=== PATIENT | female | born 1980 | race Caucasian/White ===

== ENCOUNTER 2018-05-04 07:39 | Emergency (ER) | payer BC ==
[~2018-05-04] VITALS: Ht 137.2 cm; Wt 40.9 kg
[~2018-05-04 07:39] MED LIST: ATARAX50 MG PO; ATIVAN 0.50.5 MG/TAB PO; LORTAB 5/500 501 TAB PO; NAPROSYN500 MG PO; OXYCONTIN15 MG; SPRINTEC 35 MCG1 TAB PO; ULTRAM 50MG TAB50 MG
[2018-05-04 07:48] VITALS: TEMP 98.5
[2018-05-04 08:52] LABS: BASO # 0.1 (0.0-0.2); BASO % 0.8 % (0.0-2.0); EOS # 0.5 (0.0-0.7); GRAN # 8.2 (1.4-6.5); GRAN % 66.3 % (42.2-75.2); HEMATOCRIT 39.7 % (37.0-47.0); HEMOGLOBIN 13.8 g/dl (12.5-16.0); LYMPH # 2.4 (1.2-3.4); LYMPH % 19.7 % (20.0-51.0); MEAN CELL VOLUME 89 fl (80.0-100.0); MEAN CORPUSCULAR HEMOGLOBIN 31 pg (27.0-31.0); MEAN CORPUSCULAR HGB CONC 35 g/dl (33.0-37.0); MEAN PLATELET VOLUME 8.9 fl (7.4-10.4); MONO # 1.1 (0.1-0.6); MONO % 8.8 % (1.7-9.3); PLATELET COUNT 358 K/mm3 (130-400); RED BLOOD COUNT 4.47 M/mm3 (4.10-5.30); REDCELL DISTRIBUTION WIDTH-CV 12.2 % (11.5-14.5)
[2018-05-04 08:58] LABS: COLLECTION METHOD CLEAN CATCH
[2018-05-04 09:06] LABS: ALANINE AMINOTRANSFERASE 19 U/L (9-52); ALBUMIN 4.8 gm/dL (3.5-5.0); ALKALINE PHOSPHATASE 68 U/L (50-136); ANION GAP 16 mmol/L (7-16); AST,SGOT 22 U/L (15-37); BILIRUBIN,TOTAL 0.8 mg/dL (0.0-1.0); BLOOD UREA NITROGEN 17 mg/dL (7-17); CALCIUM 9.6 mg/dL (8.4-10.2); CARBON DIOXIDE 18 mmol/L (22-30); CHLORIDE 107 mmol/L (98-107); GLUCOSE 81 mg/dL (74-106); POTASSIUM 3.6 mmol/L (3.4-5.0); SODIUM 142 mmol/L (137-145); TOTAL PROTEIN 8.2 gm/dL (6.4-8.2)
[2018-05-04 09:09] LABS: C-REACTIVE PROTEIN < 0.5 mg/dL (0.0-0.9)
[2018-05-04 09:29] LABS: MUCOUS Present /lpf; PH 5 (5-8); URINE APPEARANCE Cloudy; URINE BACTERIA Rare /hpf; URINE BILIRUBIN Negative (NEGATIVE); URINE BLOOD 1+ (NEGATIVE); URINE COLOR Yellow; URINE GLUCOSE Negative (NEGATIVE); URINE KETONE 1+ (NEGATIVE); URINE LEUKOCYTE ESTERASE Negative (NEGATIVE); URINE NITRATE Negative (NEGATIVE); URINE PROTEIN(semi-quant) 2+ (NEGATIVE)
[2018-05-04] MEDS ORDERED: FLEXERIL 1010 MG/TAB PO (10:03)
[2018-05-04] MEDS ORDERED: NORCO 325 MG-51 TAB PO (10:03)
[2018-05-04] MEDS ORDERED: LIDODERM 5% PATC1 EA TP (10:03)
[2018-05-04 10:24] VITALS: BP 112/84; PULSE 94
== END 2018-05-04 10:25 | disposition home or self-care (01) ==
LOC: COL.ER 07:39
PROVIDERS: Physician Assistant
DX: M54.5 Low back pain (principal); F17.210 Nicotine dependence, cigarettes, uncomplicated
CPT/HCPCS: J1885

== ENCOUNTER → 2018-05-08 | Outpatient (CLI) | payer BC ==
[~2018-05-08] MED LIST changes: +FLEXERIL 1010 MG/TAB PO; +LIDODERM 5% PATC1 EA TP; +NORCO 325 MG-51 TAB PO
== END ==
LOC: COL.RAD 11:18
DX: M41.86 Other forms of scoliosis, lumbar region (principal); Q65.89 Other specified congenital deformities of hip

== ENCOUNTER 2018-07-19 13:45 | Outpatient (RCR) | payer BC | END 2018-08-27 | disposition home or self-care (01) | LOC: WSPT | DX: M54.5 Low back pain (principal); M41.86 Other forms of scoliosis, lumbar region; Z79.891 Long term (current) use of opiate analgesic; Z79.899 Other long term (current) drug therapy ==

== ENCOUNTER 2019-08-04 11:46 | Emergency (ER) | payer SELFPAY ==
[~2019-08-04] VITALS: Ht 137.2 cm; Wt 38.6 kg
[2019-08-04 12:04] VITALS: BP 141/105; TEMP 98.8
[2019-08-04] MEDS ORDERED: AMOXICILLIN 8751 TAB PO (12:35)
[2019-08-04 13:45] VITALS: PULSE 104
== END 2019-08-04 13:45 | disposition home or self-care (01) ==
LOC: COL.ER 11:46
DX: K02.9 Dental caries, unspecified (principal); K04.7 Periapical abscess without sinus
CPT/HCPCS: J1885; J2270; J2543; J7030

== ENCOUNTER 2023-06-02 09:08 | Emergency (ER) | payer SELFPAY ==
[~2023-06-02] VITALS: Ht 134.6 cm; Wt 38.6 kg
[~2023-06-02 09:08] MED LIST changes: +AMOXICILLIN 8751 TAB PO
[2023-06-02] MEDS ORDERED: NORCO 325 MG-51 TAB PO (09:25)
[2023-06-02] MEDS ORDERED: AMOXICILLIN 8751 TAB PO (09:25)
[2023-06-02 09:40] VITALS: BP 138/72; PULSE 98; TEMP 97.8
== END 2023-06-02 09:38 | disposition home or self-care (01) ==
LOC: COL.ER 09:08
DX: K04.7 Periapical abscess without sinus (principal); F17.210 Nicotine dependence, cigarettes, uncomplicated